=== PATIENT | female | born 1935 | race Asian ===

== ENCOUNTER 2021-09-09 23:31 | Observation (INO) | payer OTHER ==
[2021-09-10] MEDS ORDERED: ACETAMINOPHEN 325 MG TABLET (FP) PO ONE (00:06)
[2021-09-10] MEDS ORDERED: ACETAMINOPHEN 325 MG TABLET (FP) ONE ×2 (00:41→05:16)
[2021-09-10] MEDS: ACETAMINOPHEN 500 MG TABLET (FP) PO ONE ×2 (00:48→01:38)
[2021-09-10 01:42] LABS: BASO % 0.5 % (0-2.0); EOS % 2.9 % (0-4.5); HEMATOCRIT 39.2 % (32.4-45.2); HEMOGLOBIN 13.4 GM/dL (10.7-15.3); LYMPH % 11.8 % (8-40); MCH 31.8 pg (25.7-33.7); MCHC 34.2 g/dl (32.0-36.0); MEAN CELL VOLUME 93.1 fl (80-96); MEAN PLT VOLUME 9.5 fl (7.5-11.1); MONO % 6.6 % (3.8-10.2); NEUT % 78.2 % (42.8-82.8); PLATELET COUNT 168 10^3/uL (134-434); RDW 14.4 % (11.6-15.6); WHITE BLOOD COUNT 7.8 K/mm3 (4.0-10.0)
[2021-09-10 02:00] LABS: CHLORIDE 108 mmol/L (98-107); SODIUM 142 mmol/L (136-145)
[2021-09-10 02:03] LABS: ALBUMIN 3.2 g/dl (3.4-5.0); ANION GAP 6 MMOL/L (8-16); CO2 27 mmol/L (21-32); GLUCOSE,RANDOM 108 mg/dL (74-106)
[2021-09-10 02:04] LABS: BLOOD UREA NITROGEN 21.3 mg/dL (7-18)
[2021-09-10 02:06] LABS: CREATININE 0.8 mg/dL (0.55-1.3); SGOT/AST 23 U/L (15-37); SGPT/ALT 20 U/L (13-61)
[2021-09-10 02:08] LABS: BILIRUBIN,TOTAL 0.9 mg/dL (0.2-1); TOT PROT 6.7 g/dl (6.4-8.2)
[2021-09-10 02:09] LABS: ALK PHOS 48 U/L (45-117)
[2021-09-10] MEDS ORDERED: ACETAMINOPHEN 325 MG TABLET (FP) PO PRN (04:09)
[2021-09-10] MEDS ORDERED: FAMOTIDINE 20 MG TABLET PO PRN (05:07)
[2021-09-10] MEDS ORDERED: SODIUM CHLORIDE 1,000 ML IV SCH (05:30)
[2021-09-10 06:15] LABS: EPI CELLS 6 /uL (0-25.1); HYALINE CASTS 1 /uL (0-3.1); URINE APPEARANCE CLEAR; URINE BACTERIA 107 /uL (0-1359); URINE BILIRUBIN NEGATIVE (NEGATIVE); URINE COLOR YELLOW; URINE GLUCOSE (UA) NEGATIVE (NEGATIVE); URINE KETONE NEGATIVE (NEGATIVE); URINE LEUK ESTERASE TRACE (NEGATIVE); URINE NITRITE NEGATIVE (NEGATIVE); URINE PROTEIN NEGATIVE (NEGATIVE); URINE WBC 34 /uL (0-25.8)
[2021-09-10 08:37] LABS: URINE CRYSTALS NON SEEN /hpf; URINE RBC 31.3 /uL (0-23.9)
[2021-09-10] MEDS ORDERED: ESCITALOPRAM OXALATE 10 MG TABLET ONE (09:21)
[2021-09-10] MEDS: ESCITALOPRAM OXALATE 10 MG TABLET PO SCH (09:34)
[2021-09-10] MEDS ORDERED: RIVAROXABAN 15 MG TABLET PO SCH (12:00)
[2021-09-10] MEDS: LACTATED RINGERS SOLUTION 1,000 ML/1,000 ML INFUS.BAG IV SCH (12:00)
[2021-09-10] MEDS ORDERED: PT OWN MED DRAWER 7, Y5N ONE ×3 (12:10→15:26)
[2021-09-10 14:07] LABS: CHOLESTEROL 107 mg/dL (50-200)
[2021-09-10 14:08] LABS: TRIGLYCERIDES 58 mg/dL (0-150)
[2021-09-10 14:12] LABS: LDL CHOLESTEROL (ONLY SJRH) 41 mg/dL (5-100); N-TERMINAL BNP 1148.7 pg/ml (5-450)
[2021-09-10 14:20] LABS: HDL CHOLESTEROL 58 mg/dL (40-60)
[2021-09-10 18:39] VITALS: BMI 41.9
[2021-09-10] MEDS: RIVAROXABAN 15 MG TABLET PO SCH ×2 (19:15→19:29)
[2021-09-10] MEDS ORDERED: ATORVASTATIN CA 20 MG TABLET (FP) ONE (21:17)
[2021-09-10] MEDS: ATORVASTATIN CA 20 MG TABLET (FP) PO SCH (21:44)
[2021-09-11] MEDS: LACTATED RINGERS SOLUTION 1,000 ML/1,000 ML INFUS.BAG IV SCH (03:08)
[2021-09-11 06:58] LABS: EOS % 3.2 % (0-4.5); HEMOGLOBIN 14.6 GM/dL (10.7-15.3); LYMPH % 14.6 % (8-40); MCH 31.6 pg (25.7-33.7); MEAN PLT VOLUME 9.3 fl (7.5-11.1); MONO % 8.2 % (3.8-10.2); PLATELET COUNT 161 10^3/uL (134-434); RBC 4.63 M/mm3 (3.60-5.2); RDW 14.3 % (11.6-15.6); WHITE BLOOD COUNT 7.5 K/mm3 (4.0-10.0)
[2021-09-11 07:54] LABS: ALBUMIN 3.2 g/dl (3.4-5.0); BLOOD UREA NITROGEN 12.9 mg/dL (7-18); CALCIUM 8.8 mg/dL (8.5-10.1); MAGNESIUM 1.9 mg/dL (1.8-2.4)
[2021-09-11 07:57] LABS: CREATININE 0.7 mg/dL (0.55-1.3); PHOSPHOROUS 3.1 mg/dL (2.5-4.9)
[2021-09-11 07:59] LABS: BILIRUBIN,TOTAL 1.6 mg/dL (0.2-1); TOT PROT 6.7 g/dl (6.4-8.2)
[2021-09-11] MEDS: RIVAROXABAN 15 MG TABLET PO SCH (08:48)
[2021-09-11] MEDS: ESCITALOPRAM OXALATE 10 MG TABLET PO SCH (09:11)
[2021-09-11] MEDS ORDERED: AMOXICILLIN 500 MG CAPSULE (FP) PO SCH ×2 (11:30→22:00)
[2021-09-11] MEDS: AMOXICILLIN 500 MG CAPSULE (FP) PO SCH ×3 (12:16→21:08)
[2021-09-11] MEDS: ATORVASTATIN CA 20 MG TABLET (FP) PO SCH (21:08)
[2021-09-12] MEDS: AMOXICILLIN 500 MG CAPSULE (FP) PO SCH (06:00)
[2021-09-12] MEDS: RIVAROXABAN 15 MG TABLET PO SCH (08:37)
[2021-09-12 09:02] VITALS: BP 141/69; PULSE 93; TEMP 98.1
[2021-09-12] MEDS: ESCITALOPRAM OXALATE 10 MG TABLET PO SCH (09:03)
== END 2021-09-12 11:22 ==
LOC: JER 23:31 → JERBED 09-10 02:10 → UNDOADMOB 09-10 02:10 → OBSVTOIN 09-10 05:29 → INTOOBSV 09-10 05:29 → JERBED 09-10 15:57 → J4W 09-11 03:01
PROVIDERS: ATTEND Internal Medicine
PROC: 3E0337Z Introduction of Electrolytic and Water Balance Substance into Peripheral Vein, Percutaneous Approach (ICD-10-PCS; principal; 2021-09-10)
DX: G40.909 Epilepsy, unspecified, not intractable, without status epilepticus (principal); F03.90 Unspecified dementia, unspecified severity, without behavioral disturbance, psychotic disturbance, mood disturbance, and anxiety; R42 Dizziness and giddiness; S00.01XA Abrasion of scalp, initial encounter; W18.39XA Other fall on same level, initial encounter; Y93.89 Activity, other specified; Y92.129 Unspecified place in nursing home as the place of occurrence of the external cause; Z79.01 Long term (current) use of anticoagulants; I48.91 Unspecified atrial fibrillation; M10.9 Gout, unspecified; K59.00 Constipation, unspecified; R19.7 Diarrhea, unspecified; K21.9 Gastro-esophageal reflux disease without esophagitis; D51.3 Other dietary vitamin B12 deficiency anemia; Z86.73 Personal history of transient ischemic attack (TIA), and cerebral infarction without residual deficits
CPT/HCPCS: 36415; 70450-TC; 71045-TC-FY; 72125-TC; 80053; 80061; 81003; 82550; 83036; 83735; 83880; 84100; 84443; 84484; 85025; 86850; 86900; 86901; 87086; 87186; 93005; 93010; 93306-TC; 93880-TC; 96360; 96361; 97116-GP; 97161-GP; 99285-25; C9803; G0378; U0003; U0005

== ENCOUNTER 2021-09-15 12:57 | Inpatient (IN) | payer OTHER ==
[2021-09-15 13:38] VITALS: BMI 17.2
[2021-09-15 14:09] LABS: BASO % 0.8 % (0-2.0); EOS % 2.1 % (0-4.5); HEMATOCRIT 37.4 % (32.4-45.2); HEMOGLOBIN 12.8 GM/dL (10.7-15.3); LYMPH % 9.7 % (8-40); MCH 31.6 pg (25.7-33.7); MCHC 34.3 g/dl (32.0-36.0); MEAN CELL VOLUME 92.1 fl (80-96); MEAN PLT VOLUME 9.7 fl (7.5-11.1); MONO % 9.4 % (3.8-10.2); PLATELET COUNT 188 10^3/uL (134-434); RBC 4.06 M/mm3 (3.60-5.2); RDW 13.7 % (11.6-15.6); WHITE BLOOD COUNT 9.3 K/mm3 (4.0-10.0)
[2021-09-15 14:28] LABS: CHLORIDE 105 mmol/L (98-107); SODIUM 138 mmol/L (136-145)
[2021-09-15 14:30] LABS: CALCIUM 8.6 mg/dL (8.5-10.1)
[2021-09-15 14:31] LABS: ANION GAP 7 MMOL/L (8-16); BLOOD UREA NITROGEN 22.7 mg/dL (7-18); CO2 27 mmol/L (21-32); GLUCOSE,RANDOM 127 mg/dL (74-106)
[2021-09-15 14:34] LABS: CREATININE 0.8 mg/dL (0.55-1.3); SGOT/AST 29 U/L (15-37); SGPT/ALT 24 U/L (13-61)
[2021-09-15 14:36] LABS: BILIRUBIN,TOTAL 1.2 mg/dL (0.2-1); TOT PROT 6.4 g/dl (6.4-8.2)
[2021-09-15 14:37] LABS: ALK PHOS 49 U/L (45-117)
[2021-09-15] MEDS ORDERED: FAMOTIDINE 20 MG TABLET PO PRN (15:50)
[2021-09-15] MEDS ORDERED: FAMOTIDINE 10 MG TABLET PO PRN (15:59)
[2021-09-15] MEDS ORDERED: ASPIRIN 81 MG CHEWABLE TABLETS PO ONE (16:32)
[2021-09-15 17:28] LABS: INR 2.01 (0.83-1.09); PROTHROMBIN TIME (PATIENT) 22.7 SEC (9.7-13.0)
[2021-09-15 17:31] LABS: ACTIVATED PTT 39.1 SECONDS (25.2-36.5)
[2021-09-15] MEDS ORDERED: MIDAZOLAM HCL 2 MG/2 ML SINGLE DOSE VIAL IVPUSH ONE (17:43)
[2021-09-15] MEDS ORDERED: MIDAZOLAM HCL 2 MG/2 ML SINGLE DOSE VIAL ONE (17:43)
[2021-09-15] MEDS ORDERED: levETIRAcetam 500 MG TABLET (FP) PO ONE (21:07)
[2021-09-15] MEDS ORDERED: levETIRAcetam 500 MG/5 ML INJECTION VIAL IVPB ONE ×2 (21:36→22:47)
[2021-09-15] MEDS: ATORVASTATIN CA 20 MG TABLET (FP) PO SCH (22:42)
[2021-09-16] MEDS: ESCITALOPRAM OXALATE 10 MG TABLET PO SCH (09:39)
[2021-09-16] MEDS ORDERED: levETIRAcetam 500 MG TABLET (FP) PO SCH (10:00)
[2021-09-16] MEDS ORDERED: PT OWN MED DRAWER 7, Y5N ONE ×3 (10:55→13:38)
[2021-09-16] MEDS: levETIRAcetam 250 MG TABLET PO SCH ×2 (13:35→21:13)
[2021-09-16] MEDS: ATORVASTATIN CA 20 MG TABLET (FP) PO SCH (21:13)
[2021-09-17] MEDS ORDERED: PT OWN MED DRAWER 7, Y5N ONE ×2 (09:11→21:20)
[2021-09-17] MEDS: levETIRAcetam 250 MG TABLET PO SCH ×2 (10:44→21:28)
[2021-09-17] MEDS: ESCITALOPRAM OXALATE 10 MG TABLET PO SCH (10:44)
[2021-09-17] MEDS: ATORVASTATIN CA 20 MG TABLET (FP) PO SCH (21:28)
[2021-09-18] MEDS ORDERED: PT OWN MED DRAWER 7, Y5N ONE ×2 (09:59→21:41)
[2021-09-18] MEDS: levETIRAcetam 250 MG TABLET PO SCH ×2 (10:14→22:27)
[2021-09-18] MEDS: ESCITALOPRAM OXALATE 10 MG TABLET PO SCH (10:14)
[2021-09-18] MEDS: ATORVASTATIN CA 20 MG TABLET (FP) PO SCH (22:27)
[2021-09-18] MEDS ORDERED: traZODone HCL 50 MG TABLET (FP) PO ONE (23:13)
[2021-09-19] MEDS ORDERED: PT OWN MED DRAWER 7, Y5N ONE (09:06)
[2021-09-19] MEDS: ESCITALOPRAM OXALATE 10 MG TABLET PO SCH (09:23)
[2021-09-19] MEDS: levETIRAcetam 250 MG TABLET PO SCH ×2 (09:23→22:07)
[2021-09-19] MEDS: ATORVASTATIN CA 20 MG TABLET (FP) PO SCH (22:08)
[2021-09-20] MEDS: ESCITALOPRAM OXALATE 10 MG TABLET PO SCH (10:53)
[2021-09-20] MEDS: levETIRAcetam 250 MG TABLET PO SCH (10:53)
[2021-09-20 21:03] VITALS: BP 107/56; PULSE 85; TEMP 99.5
== END 2021-09-20 20:53 | DRG 82 ==
LOC: JER 12:57 → JERBED 21:15 → J4W 09-16 05:51
PROVIDERS: ADMIT Internal Medicine; ATTEND Internal Medicine
DX: S06.369A Traumatic hemorrhage of cerebrum, unspecified, with loss of consciousness of unspecified duration, initial encounter (principal); I21.4 Non-ST elevation (NSTEMI) myocardial infarction; G93.6 Cerebral edema; E44.0 Moderate protein-calorie malnutrition; Z68.1 Body mass index [BMI] 19.9 or less, adult; S06.6X9A Traumatic subarachnoid hemorrhage with loss of consciousness of unspecified duration, initial encounter; S01.111A Laceration without foreign body of right eyelid and periocular area, initial encounter; R55 Syncope and collapse; W19.XXXA Unspecified fall, initial encounter; Y93.9 Activity, unspecified; Y92.89 Other specified places as the place of occurrence of the external cause; Y99.9 Unspecified external cause status; F03.90 Unspecified dementia, unspecified severity, without behavioral disturbance, psychotic disturbance, mood disturbance, and anxiety; I10 Essential (primary) hypertension; E78.5 Hyperlipidemia, unspecified
CPT/HCPCS: 36415; 70450-TC; 70496-TC; 70498-TC; 71045-TC-FY; 72125-TC; 80053; 82550; 82553; 84484; 85025; 85610; 85730; 86850; 86900; 86901; 93005; 93010; 99285-25; C9803; U0003; U0005

== ENCOUNTER 2022-04-13 18:37 | Emergency (ER) | payer OTHER ==
[2022-04-13 18:59] VITALS: TEMP 97.7; BMI 22.9
[2022-04-13] MEDS ORDERED: HUM PROTHROMBIN CPLX(PCC)4FACT 1,000 UNIT/40 ML VIAL IVPB ONE ×2 (19:30)
[2022-04-13] MEDS ORDERED: ACETAMINOPHEN 1000 MG/100 ML BAG IVPB ONE (19:59)
[2022-04-13] MEDS ORDERED: SODIUM CHLORIDE 0.9% 500 ML INFUS.BAG IV ONE (19:59)
[2022-04-13] MEDS ORDERED: ACETAMINOPHEN INJECTION 100 ML IVPB ONE (20:16)
[2022-04-13] MEDS ORDERED: levETIRAcetam 500 MG/5 ML INJECTION VIAL IVPB ONE ×2 (20:17→20:19)
[2022-04-13 20:19] LABS: BASO % 0.8 % (0-2.0); HEMATOCRIT 32.9 % (32.4-45.2); LYMPH % 7.4 % (8-40); MCH 31.1 pg (25.7-33.7); MCHC 33.4 g/dl (32.0-36.0); MEAN CELL VOLUME 93.1 fl (80-96); MEAN PLT VOLUME 8.1 fl (7.5-11.1); MONO % 7.2 % (3.8-10.2); NEUT % 83.6 % (42.8-82.8); PLATELET COUNT 276 10^3/uL (134-434); RBC 3.53 M/mm3 (3.60-5.2); RDW 15.2 % (11.6-15.6); WHITE BLOOD COUNT 11.3 K/mm3 (4.0-10.0)
[2022-04-13 20:40] LABS: BLOOD UREA NITROGEN 27.7 mg/dL (7-18); MAGNESIUM 1.9 mg/dL (1.8-2.4)
[2022-04-13 20:45] VITALS: BP 160/93; PULSE 114
[2022-04-13 20:45] LABS: BILIRUBIN,TOTAL 1.2 mg/dL (0.2-1); TOT PROT 6.8 g/dl (6.4-8.2)
== END 2022-04-13 20:47 | disposition short-term general hospital (02) ==
LOC: JER 18:37
DX: S06.369A Traumatic hemorrhage of cerebrum, unspecified, with loss of consciousness of unspecified duration, initial encounter (principal); S06.6X9A Traumatic subarachnoid hemorrhage with loss of consciousness of unspecified duration, initial encounter; S00.83XA Contusion of other part of head, initial encounter; W01.0XXA Fall on same level from slipping, tripping and stumbling without subsequent striking against object, initial encounter
CPT/HCPCS: 36415; 70450-TC; 70486-TC; 71260-TC; 72125-TC; 72128-TC; 72131-TC; 74177-TC; 80053; 83690; 83735; 84484; 85025; 86850; 86900; 86901; 99285-25; 99291; 99292; J7168; Q9967